=== PATIENT | male | born 1965 | race Caucasian/White ===

== ENCOUNTER 2019-01-23 11:08 | Emergency (ER) | payer OTHER ==
[~2019-01-23] VITALS: Ht 152.4 cm; Wt 77.1 kg
[~2019-01-23 11:08] MED LIST: ASPI81EC PO; ATOR10 PO; GLIM2 PO; LISI20 PO; LOVA40 PO; METF500 PO; METO50ER PO
== END 2019-01-23 12:46 | disposition home or self-care (01) ==
LOC: ER 11:08
DX: S00.12XA Contusion of left eyelid and periocular area, initial encounter (principal); S60.222A Contusion of left hand, initial encounter; V03.90XA Pedestrian on foot injured in collision with car, pick-up truck or van, unspecified whether traffic or nontraffic accident, initial encounter; E11.9 Type 2 diabetes mellitus without complications; I10 Essential (primary) hypertension; E78.5 Hyperlipidemia, unspecified; Z79.899 Other long term (current) drug therapy; Z79.84 Long term (current) use of oral hypoglycemic drugs; Z79.82 Long term (current) use of aspirin
CPT/HCPCS: 73130; 99283-25

== ENCOUNTER → 2023-04-19 | Outpatient (CLI) | payer OTHER | END | disposition home or self-care (01) | LOC: LAB 14:00 → LAB SHORT 14:00 | PROVIDERS: Family Medicine | DX: Z12.5 Encounter for screening for malignant neoplasm of prostate (principal); E11.65 Type 2 diabetes mellitus with hyperglycemia; E11.59 Type 2 diabetes mellitus with other circulatory complications; E11.51 Type 2 diabetes mellitus with diabetic peripheral angiopathy without gangrene; E11.69 Type 2 diabetes mellitus with other specified complication | CPT/HCPCS: 83036; G0103 ==

== ENCOUNTER 2025-01-12 07:09 | Day surgery (SDC) | payer OTHER ==
[~2025-01-12] VITALS: Ht 152.4 cm; Wt 67.5 kg
[~2025-01-12 07:09] MED LIST changes: +Lactated Ringer's 1,000 ML IV SCH; +OZEMPIC2 MG/0.75 SC; +TOUJEO MAX300 UNIT/2 SC
[2025-01-12] MEDS ORDERED: LOSA50 PO (08:17)
[2025-01-12 08:22] VITALS: BP 169/72
--- NOTE | 2025-01-12 08:25 | NUR ---
Ambulatory in Day Surgery WITH STEADY GAIT. PT IS BLIND. HE HAS WALKING STICK WITH HIM. MOM GUIDED HIM INTO UNIT. ABLE TO USE RESTROOM INDEPENDENTLY. History, Chart, Medications and Allergies reviewed before start of procedure. Patient States Post-Procedure ride home has been arranged WITH MOTHER. Patient confirms NPO status and agrees with scheduled surgery. Pre-Op teaching done. Pt verbalizes understanding. HEARING AIDS AND GLASSES REMOVED AND PLACED IN PT BELONGING BAG BY PT. MOTHER AT BEDSIDE FOR ADMISSION.
[2025-01-12] MEDS ORDERED: propofoL 40 ML IV ONE (08:40)
--- NOTE | 2025-01-12 08:55 | NUR ---
01/12/25 0855 Janes Urbina MONITOR INTACT WITH CONTINUOUS PULSE OXIMETRY, CONTINUOUS END TITAL CO2, 3-LEAD EKG AND INTERMITTENT BLOOD PRESSURE. ANESTHESIA PER DR. CLAUDIO
[2025-01-12 09:25] VITALS: BP 118/70
[2025-01-12 09:35] VITALS: BP 121/65
[2025-01-12 09:45] VITALS: BP 140/73
--- NOTE | 2025-01-12 09:55 | NUR ---
DISCHAGE NOTE PT A&OX4, BREATHING RA, NO COMPLAINTS. PT TOLERATING PO INTAKE, MOM AT BEDSIDE. VSS. Patient up to Ambulate independently. Gait steady. Discharge instructions reviewed with patient. Patient verbalizes understanding. Copy given to patient to take home.ABDOMEN SOFT AND NON TENDER. Discharged via wheelchair to private car for ride home.
== END 2025-01-12 09:55 | disposition home or self-care (01) ==
LOC: ORSCMMR 07:09 → ORD 08:30 → ORSCMMR 08:30 → ORD 10:30
PROVIDERS: Internal Medicine Gastroenterology
PROC: 0DJD8ZZ Inspection of Lower Intestinal Tract, Via Natural or Artificial Opening Endoscopic (ICD-10-PCS; principal; 2025-01-12 08:30)
DX: Z12.11 Encounter for screening for malignant neoplasm of colon (principal); Z86.0100 Personal history of colon polyps, unspecified; E11.9 Type 2 diabetes mellitus without complications; G47.33 Obstructive sleep apnea (adult) (pediatric); Z79.4 Long term (current) use of insulin; E78.00 Pure hypercholesterolemia, unspecified; H54.3 Unqualified visual loss, both eyes; Z79.84 Long term (current) use of oral hypoglycemic drugs; Z79.85 Long-term (current) use of injectable non-insulin antidiabetic drugs
CPT/HCPCS: 82947; J2704; J7120